=== PATIENT | female | born 1950 | race Hispanic/Latino ===

== ENCOUNTER 2017-03-26 16:21 | Observation (INO) | payer MEDICARE ==
[~2017-03-26] VITALS: Ht 147.3 cm; Wt 59.2 kg
[~2017-03-26 16:21] MED LIST: CHLO25TA3 PO; LEVO750T46 PO; LISI40TA4 PO; VENL75TA63 PO
[2017-03-26 17:09] LABS: BASOPHILS % (AUTO) 1.3 % (0.0-5.0); EOSINOPHILS % (AUTO) 2.6 % (0.0-8.0); LYMPHOCYTES % (AUTO) 30.2 % (21.0-51.0); MEAN CORPUSCULAR HEMOGLOBIN 24.8 pg (27.0-33.0); MEAN CORPUSCULAR HGB CONC 31.9 g/dL (32.0-36.0); MEAN CORPUSCULAR VOLUME 77.7 fL (79-99); MONOCYTES % (AUTO) 10.9 % (3.0-13.0); PLATELET COUNT (AUTO) 320 K/uL (130-400); RED BLOOD CELL COUNT(AUTO) 2.63 MIL/uL (4.00-5.50); RED CELL DISTRIBUTION WIDTH 21.8 % (11.0-15.5); WHITE BLOOD COUNT (AUTO) 7.9 K/uL (4.8-10.8)
[2017-03-26 17:11] LABS: HEMATOCRIT 20.4 % (36-48)
[2017-03-26 17:22] LABS: PROTHROMBIN TIME 10.5 SEC (9.6-11.6)
[2017-03-26 17:33] LABS: CREATINE KINASE MB 0.7 ng/mL (0.5-3.6)
[2017-03-26] MEDS ORDERED: ZOLPIDEM TARTRATE 5 MG TAB PO PRN (18:30)
[2017-03-26] MEDS ORDERED: MORPHINE SULFATE 2 MG/ML 1ML SYG IV PRN (18:30)
[2017-03-26] MEDS ORDERED: ONDANSETRON HCL 4 MG/2 ML VIAL IV PRN (18:30)
[2017-03-26] MEDS ORDERED: ACETAMINOPHEN-CODEINE 300/30MG TAB PO PRN ×2 (18:30→23:00)
[2017-03-26] MEDS ORDERED: NITROGLYCERIN 0.4 MG SL TAB SL PRN (18:30)
[2017-03-26] MEDS ORDERED: MAG HYDROX/AL HYDROX/SIMETH ES 30 ML SUSP UDCUP PO PRN (18:30)
[2017-03-26] MEDS ORDERED: HYDRALAZINE HCL 20 MG/ML VIAL IV PRN (18:30)
[2017-03-26] MEDS ORDERED: GUAIFENESIN-DM 200/20 MG 10 ML PO PRN (18:30)
[2017-03-26] MEDS ORDERED: ACETAMINOPHEN 325 MG TAB PO PRN (18:30)
[2017-03-26] MEDS ORDERED: LACTULOSE 20 GM/30 ML UDCUP PO PRN (18:30)
[2017-03-26 18:54] LABS: CREATININE 0.7 mg/dL (0.5-1.5); POTASSIUM 3.8 mmol/L (3.5-5.1)
[2017-03-26 18:55] LABS: RETICULOCYTE % (AUTO) 6.51 % (0.42-2.23)
[2017-03-26 18:59] LABS: ALBUMIN 2.9 g/dL (3.5-5.0); BILIRUBIN,TOTAL 0.3 mg/dL (0.2-1.0); TOTAL PROTEIN, SERUM 7.1 g/dL (6.0-8.3)
[2017-03-26 19:10] LABS: % IRON SATURATION 4.5 % (22-44)
[2017-03-26] MEDS ORDERED: SODIUM CHLORIDE 0.9% 1000ML 1,000 ML IV ONE (19:39)
[2017-03-26 21:40] VITALS: BP 182/75
[2017-03-26] MEDS ORDERED: TYL3 PO (21:59)
[2017-03-26] MEDS ORDERED: METF10004 PO (21:59)
[2017-03-26 22:10] VITALS: BP 153/90
[2017-03-26 23:48] VITALS: BP 189/86
[2017-03-27] MEDS ORDERED: DEXTROSE 50%-WATER 50 ML DISP.SYRIN IV PRN (00:45)
[2017-03-27] MEDS ORDERED: GLUCAGON 1MG KIT 1 MG ML IM PRN (00:45)
[2017-03-27] MEDS ORDERED: ACETAMINOPHEN-CODEINE 300/30MG TAB PO PRN (01:00)
[2017-03-27 01:35] VITALS: BP 121/59
[2017-03-27 04:00] VITALS: BP 114/63
[2017-03-27 05:42] LABS: BASOPHILS % (AUTO) 1.3 % (0.0-5.0); EOSINOPHILS % (AUTO) 3.4 % (0.0-8.0); HEMATOCRIT 29.6 % (36-48); LYMPHOCYTES % (AUTO) 34.7 % (21.0-51.0); MEAN CORPUSCULAR HGB CONC 34.5 g/dL (32.0-36.0); MEAN CORPUSCULAR VOLUME 78.3 fL (79-99); NEUTROPHILS % (AUTO) 50.6 % (40.0-77.0); NUCLEATED RED BLOOD CELLS 0.1 % (0.0-0.19); PLATELET COUNT (AUTO) 308 K/uL (130-400); RED BLOOD CELL COUNT(AUTO) 3.78 MIL/uL (4.00-5.50); RED CELL DISTRIBUTION WIDTH 18.6 % (11.0-15.5); WHITE BLOOD COUNT (AUTO) 7.6 K/uL (4.8-10.8)
[2017-03-27 05:52] LABS: CREATININE 0.6 mg/dL (0.5-1.5)
[2017-03-27] MEDS: INSULIN HUMULIN R 100 UNIT/ML 3ML SQ SCH ×2 (05:58→11:30)
[2017-03-27 07:51] VITALS: BP 135/57
[2017-03-27] MEDS ORDERED: LEVOFLOXACIN 750 MG TABLET PO SCH (09:00)
[2017-03-27] MEDS ORDERED: FERROUS SULFATE 325 MG TABLET.DR PO SCH (09:00)
[2017-03-27] MEDS ORDERED: VENLAFAXINE HCL 75 MG TAB PO SCH (09:00)
[2017-03-27] MEDS ORDERED: CHLORTHALIDONE 25 MG PO SCH (09:00)
[2017-03-27] MEDS ORDERED: PANTOPRAZOLE SODIUM 40 MG TABLET.DR PO SCH (09:00)
[2017-03-27] MEDS ORDERED: LISINOPRIL 40 MG TABLET PO SCH (09:00)
[2017-03-27 11:31] VITALS: BP 145/73
== END 2017-03-27 17:16 | disposition home or self-care (01) ==
LOC: EDH 16:21 → OBSVTOIN 18:26 → EDHIP 18:26 → INTOOBSV 18:26 → 4BH 21:04
PROVIDERS: ADMIT Family Medicine; ATTEND Family Medicine
DX: D64.9 Anemia, unspecified (principal); E11.9 Type 2 diabetes mellitus without complications; I10 Essential (primary) hypertension; R06.00 Dyspnea, unspecified; Z82.49 Family history of ischemic heart disease and other diseases of the circulatory system; Z83.3 Family history of diabetes mellitus; Z96.652 Presence of left artificial knee joint; Z96.612 Presence of left artificial shoulder joint; Z79.899 Other long term (current) drug therapy
CPT/HCPCS: 36415 ×2; 36430; 71045; 80048; 80053; 82270; 82550; 82553; 82607; 82728; 82746; 82948 ×2; 84484; 85025 ×2; 85610; 85730; 86850; 86900; 86901; 86922; 93005; 96374; 96375; 99285; G0378 ×23; J0360; J2405; J7030; P9016 ×2; 96376